=== PATIENT | female | born 1980 | race Two or more races ===

== ENCOUNTER 2018-05-25 13:16 | Emergency (ER) | payer OTHER ==
[2018-05-25 13:24] VITALS: BP 110/65
[2018-05-25] MEDS ORDERED: PROPARACAINE 0.5% 15 ML OPHT DROP ONE (13:58)
[2018-05-25] MEDS ORDERED: FLUORESCEIN SODIUM 1 MG STRIP OP ONE (13:58)
[2018-05-25] MEDS ORDERED: PROPARACAINE 0.5% 15 ML OPHT DROP LEFTEYE ONE (13:59)
[2018-05-25] MEDS ORDERED: OXYCODONE/APAP 5/325 TAB PO ONE (14:06)
[2018-05-25] MEDS ORDERED: OFLOXACIN 0.3% SOLN PREPACK OPHT.BTL TAKEHOME ONE (14:06)
--- NOTE | 2018-05-25 14:09 | EDPHY ---
H & P Stated Complaint: pT HAD SCREW HEAD STRIKE l EYE,NO OBVIOUS INJURY Time Seen by Provider: 05/25/18 13:55 HPI/ROS: CHIEF COMPLAINT: Left eye pain HISTORY OF PRESENT ILLNESS: 37-year-old female with no corrective lens use history arrives via private vehicle complaining of left eye pain after she was fixing a piece of furniture and a screw popped out and impacted her left eye. No high speed projectiles as she notes that this was low speed. No grinding or hammering. She is unable to open her eye secondary to pain. Positive photophobia. Tetanus up-to-date. Occurred shortly prior to arrival. PHYSICAL EXAM (Prior to examination, patient consented to physical exam, hands were washed and my usual and customary physical exam procedures followed) 1) GENERAL: Well-developed, well-nourished, alert and oriented. Appears uncomfortable. Upon instillation of Alcaine she has total relief of symptoms and is able to open her left eye spontaneously. 2) HEAD: Normocephalic 3) HEENT: sclera anicteric 4) LUNGS: Breathing comfortably. [5) OCULAR EXAM: Visual Acuity: Right eye 20/40, left eye 20/70, both eyes 20/30 Pupils:equal round and reactive to light EOMI Lids: no edema or swelling, upper and lower lids were everted and no foreign bodies were visualized, no areas of increased fluorescein uptake. Skin: no proptosis, no periorbital erythema or swelling, no vesicles, no pain with extraocular movements. Conjunctivae: not injected, no discharge, negative Stephanie test. Cornea: exam with fluorescein showscorneal abrasion, irregularly-shaped central aspect of her left cornea. Anterior chamber:normal, no hyphema or hypopyon - Medical/Surgical History Hx Asthma: No Hx Chronic Respiratory Disease: No Hx Diabetes: No Hx Cardiac Disease: No Hx Renal Disease: No Hx Cirrhosis: No Hx Alcoholism: No Hx HIV/AIDS: No Hx Splenectomy or Spleen Trauma: No Other PMH: none - Social History Smoking Status: Never smoked Constitutional: Initial Vital Signs Temperature (C) 37.3 C 05/25/18 13:21 Heart Rate 68 05/25/18 13:21 Respiratory Rate 16 05/25/18 13:21 Blood Pressure 110/65 05/25/18 13:21 O2 Sat (%) 97 05/25/18 13:21 O2 Delivery Mode Room Air Allergies/Adverse Reactions: No Known Allergies Allergy (Verified 05/25/18 13:20) Home Medications: Medication Instructions Recorded Cold Medicine Otc 08/21/14 oxyCODONE/APAP 5/325 [Percocet 1 tab PO Q6 #10 tab 05/25/18 5/325] Medical Decision Making ED Course/Re-evaluation: Clinical evidence of corneal abrasion. Plan will be discharged with analgesia, ophthalmic antibiotics. Usual and customary ophthalmological precautions instructions provided. Today is Monday. Recommend she follow up with Ophthalmology on-call Dr. Faizan Bingham on Monday. To return to the ER sooner with new or worsening symptoms. She verbalized understanding of discharge instructions. I saw this patient independently based on established practice protocols. Care of patient under supervision of secondary supervising physician Dr Wood . Departure - Departure Disposition: Home, Routine, Self-Care Clinical Impression: Left corneal abrasion Qualifiers: Encounter type: initial encounter Qualified Code(s): S05.02XA - Injury of conjunctiva and corneal abrasion without foreign body, left eye, initial encounter Condition: Good Instructions: Corneal Abrasion (ED) Additional Instructions: Return to the ER if you have new or worsening pain, if you have vision loss or any other symptoms that concern you. Referrals: Faizan Bingham MD [Medical Doctor] - 2-3 days without fail (Dr. Bingham is an eye doctor) Prescriptions: oxyCODONE/APAP 5/325 [Percocet 5/325] 1 tab PO Q6 #10 tab
== END 2018-05-25 15:04 | disposition home or self-care (01) ==
DX: S05.02XA Injury of conjunctiva and corneal abrasion without foreign body, left eye, initial encounter (principal); W20.8XXA Other cause of strike by thrown, projected or falling object, initial encounter; Y93.D3 Activity, furniture building and finishing; Y92.9 Unspecified place or not applicable; Y99.9 Unspecified external cause status